=== PATIENT | male | born 2000 | race Caucasian/White ===

== ENCOUNTER 2023-07-08 10:36 | Emergency (ER) | payer OTHER, SELFPAY ==
[2023-07-08] VITALS (11 sets, daily range): BP systolic 124–137; BP diastolic 70–83; PULSE 63–80; RESP 16–18; TEMP 36.6–36.7; O2SAT 96–100; BMI 28.1
--- NOTE | 2023-07-08 10:48 | ED.GENADULT ---
HPI - General Adult General Chief complaint: Urogenital-Male Stated complaint: Rt. Sided Pain, Poss. Kindney Stone Time Seen by Provider: 07/08/23 10:37 Source: patient Mode of arrival: EMS Limitations: no limitations History of Present Illness HPI narrative: Patient is a otherwise healthy 23-year-old male who is brought in by EMS for evaluation of right-sided flank pain. He states that approximately 0800 hours this morning he was sitting in a chair when he had a sudden onset of right-sided flank pain that radiated around to his abdomen. He did receive Toradol prior to arrival. He states that he is now fairly asymptomatic. He had a bowel movement this morning that did not change his pain at all. No fevers. No vomiting. He is never had a kidney stone in the past. No problems urinating. No blood in his urine. Related Data Previous Rx's Medication Instructions Recorded hydrocodone 5 mg-acetaminophen 325 1 tab PO Q4-6H PRN pain #10 tabs 07/08/23 mg tablet ondansetron 4 mg disintegrating 4 mg PO Q6H PRN nausea and 07/08/23 tablet vomiting #14 tabs tamsulosin 0.4 mg capsule (Flomax) 0.4 mg PO DAILY #14 caps 07/08/23 Review of Systems Constitutional Constitutional: Reports system reviewed and no additional complaints, except as documented Respiratory Respiratory: Reports system reviewed and no additional complaints, except as documented Gastrointestinal Gastrointestinal: Reports system reviewed and no additional complaints, except as documented Genitourinary Genitourinary: Reports system reviewed and no additional complaints, except as documented Integumentary/Breasts Skin/Breast: Reports system reviewed and no additional complaints, except as documented Hematologic/Lymphatic On Anticoagulants: No Patient History Social History Smoking Status: Current every day smoker Exam Initial Vital Signs Initial Vital Signs: Vital Signs Pulse Rate 66 07/08/23 10:38 Pulse Oximetry 96 07/08/23 10:38 Const General: cooperative and comfortable HENMT Head: normal to inspection and normocephalic Resp Effort & Inspection: normal respiratory effort Cardio Rate: regular rate GI Inspection: normal to inspection and non-distended Palpation: soft and No tender Skin General: no rashes or lesions noted Neuro General: patient alert, patient awake and moves all extremities Course Orders Ordered: ED Orders 07/08/23 10:42 Ictotest Urine Stat Urine Culture Stat Urine Microscopic Stat 07/08/23 10:47 CT kidney ureter bladder (KUB) Stat 07/08/23 12:08 BMP [Basic Metabolic Panel] Stat Discontinued Medications Hydrocodone Bitart/Acetaminophen (Hydrocodone/Acet 5/325 Tablet) 1 tab PO NOW ONE Stop: 07/08/23 12:21 Last Admin: 07/08/23 12:25 Dose: 1 tab Documented By: BENITO Tamsulosin HCl (Tamsulosin 0.4 Mg Capsule) 0.4 mg PO NOW ONE Stop: 07/08/23 12:21 Last Admin: 07/08/23 12:24 Dose: 0.4 mg Documented By: BENITO Vital Signs Vital signs: Vital Signs - 8 hr 07/08/23 10:38 07/08/23 10:39 07/08/23 10:39 Temperature Pulse Rate 66 67 Respiratory Rate Blood Pressure 132/73 Pulse Oximetry 96 98 Oxygen Delivery Method 07/08/23 10:43 07/08/23 10:54 07/08/23 10:54 Temperature 98.1 F Pulse Rate 67 67 Respiratory Rate 18 Blood Pressure 132/73 129/83 Pulse Oximetry 100 100 Oxygen Delivery Method Room Air 07/08/23 10:55 07/08/23 11:00 07/08/23 11:00 Temperature 97.9 F Pulse Rate 67 67 Respiratory Rate 16 Blood Pressure 129/83 130/79 Pulse Oximetry 99 100 Oxygen Delivery Method Room Air 07/08/23 11:30 07/08/23 11:30 07/08/23 11:44 Temperature Pulse Rate 67 Respiratory Rate Blood Pressure 133/74 124/70 Pulse Oximetry 99 Oxygen Delivery Method 07/08/23 11:44 07/08/23 12:00 07/08/23 12:01 Temperature Pulse Rate 63 70 Respiratory Rate Blood Pressure 131/70 Pulse Oximetry 98 99 Oxygen Delivery Method 07/08/23 12:01 Temperature Pulse Rate 67 Respiratory Rate Blood Pressure Pulse Oximetry 99 Oxygen Delivery Method Medical Decision Making Lab Data Lab results reviewed: Yes I reviewed the patient's lab results. 07/08/23 12:08 Labs: Lab Results 07/08/23 07/08/23 Range/Units 10:42 12:08 Sodium 137 (137-145) mmol/L Potassium 3.8 (3.4-5.1) mmol/L Chloride 99 (98-107) mmol/L Carbon Dioxide 27 (22-32) mmol/L BUN 14 (9-20) mg/dL Creatinine 1.30 H (0.66-1.25) mg/dL Estimated GFR > 60 (>60) mL/min BUN/Creatinine Ratio 10.8 (6-22) Glucose 97 (70-100) mg/dL Calcium 9.5 (8.4-10.2) mg/dL Ur Bilirubin Confirm Negative (Negative) Urine RBC >100/hpf H (0-5/HPF) Urine WBC 5-10/hpf H (0-5/HPF) Ur Squamous Epith Cells 1-5 /hpf (0-5/HPF) Urine Bacteria None seen (None) Ur Culture Indicated? Specimen cultured Urine Dip Bedside Urine Glucose Negative Bedside Urine Bilirubin + 1 Bedside Urine Ketone +/- 5 Urine Specific Bonham 1.030 Bedside Urine Occult Blood +++ Bedside Urine pH 5.5 Bedside Urine Protein ++ 100 Bedside Urine Urobilinogen - Negative Bedside Urine Nitrite - Negative Bedside Urine Leukocytes +/- 15 Esterase Point of care testing: Urine Dip Bedside Urine Glucose Negative Bedside Urine Bilirubin + 1 Bedside Urine Ketone +/- 5 Urine Specific Bonham 1.030 Bedside Urine Occult Blood +++ Bedside Urine pH 5.5 Bedside Urine Protein ++ 100 Bedside Urine Urobilinogen - Negative Bedside Urine Nitrite - Negative Bedside Urine Leukocytes +/- [address] scan - abdomen/pelvis: Radiologist's Impression: PROCEDURE: CT KIDNEY URETER BLADDER (KUB) INDICATIONS: R sided flank pain TECHNIQUE: Axial sections were acquired from the lung bases to the pubic symphysis. Coronal and sagittal reformats were performed. For radiation dose reduction, the following was used: automated exposure control, adjustment of mA and/or kV according to patient size. COMPARISON: None. FINDINGS: Image quality: Excellent. Lung bases: Unremarkable. Heart: No significant findings. URINARY: Right Kidney: Mild hydronephrosis and mild perinephric stranding. Right Ureter: Obstructing stone within the proximal right ureter measuring 5 mm (Hounsfield units 787). There is mild upstream hydroureteronephrosis. Left Kidney: No stones or hydronephrosis. Left Ureter: No hydroureter. Bladder: Decompressed, limiting evaluation. No stones. ABDOMEN: Liver: Unremarkable. Gallbladder: Unremarkable. Biliary ducts: Unremarkable. Pancreas: Unremarkable. Spleen: Unremarkable. Adrenal Glands: Unremarkable. Stomach and Bowel: Stomach, small bowel loops, and colon are unremarkable. Peritoneum: No abnormal intraperitoneal fluid. No free air. Ventral Wall: No hernia. Abdominal Nodes: No enlarged retroperitoneal or mesenteric lymph nodes. Vessels: Aorta and inferior vena cava are normal in size. PELVIS: Pelvic Organs: Unremarkable. Pelvic Nodes: Unremarkable. Miscellaneous: No inguinal hernias are seen. Bones: Unremarkable. IMPRESSION: There is a 5 mm obstructing stone within the proximal right ureter resulting in mild upstream hydroureteronephrosis. MDM Narrative Medical decision making narrative: Patient does have a 5 mm right-sided ureteral stone which very much explains his presenting symptoms today. Has a creatinine of 1.3 however do not have a baseline for him. His pain is relatively controlled. Given the size of the stone will also start him on Flomax. No signs of urinary tract infection. Tolerating oral intake. 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 He was given return precautions. He expressed understanding and agreement. Discharge Plan Departure Patient Disposition: Home Clinical Impression: Right ureteral stone Instructions: DI for Kidney Stones Activity Restrictions/Additional Instructions: I do recommend that you increase your fluid intake. Take the nausea medication and pain medication as needed. You do need to be cleared by your medical department before you return to work. Return to the emergency department for pain or nausea that is not controlled and or fevers. Prescriptions: New tamsulosin [Flomax] 0.4 mg capsule 0.4 mg PO DAILY Qty: 14 0RF ondansetron 4 mg tablet,disintegrating 4 mg PO Q6H PRN (Reason: nausea and vomiting) Qty: 14 0RF hydrocodone-acetaminophen 5-325 mg tablet 1 tab PO Q4-6H PRN (Reason: pain) Qty: 10 0RF Stand Alone Forms: Patient Portal/API
[2023-07-08 10:56] LABS: Ictotest Urine Negative (Negative)
[2023-07-08 11:00] LABS: RBC Urine >100/HPF (0-5/HPF)
[2023-07-08 11:01] LABS: WBC Urine 5-10/HPF (0-5/HPF)
[2023-07-08 11:02] LABS: Bacteria Urine None Seen; Culture Indicated Urine Specimen Cultured; Squamous Epithelial Cell Urine 1-5 /HPF (0-5/HPF)
[2023-07-08] MEDS: TAMSULOSIN 0.4 MG CAPSULE PO (12:24)
[2023-07-08] MEDS: HYDROCODONE/ACET 5/325 TABLET 1 TAB PO (12:25)
[2023-07-08 12:27] LABS: BUN Creatinine Ratio 10.8 (6-22); Blood Urea Nitrogen 14 mg/dL (9-20); Calcium 9.5 mg/dL (8.4-10.2); Carbon Dioxide 27 mmol/L (22-32); Chloride 99 mmol/L (98-107); Estimated Glomerular Filt Rate > 60 mL/min (>60); Glucose 97 mg/dL (70-100); HEMOLYSIS < 15 (0-50); Potassium 3.8 mmol/L (3.4-5.1); Sodium 137 mmol/L (137-145)
--- NOTE | 2023-08-03 14:45 | PC.NURSE ---
records sent to [facility] for continuity of care.
== END 2023-07-08 12:39 | disposition home or self-care (01) ==
PROVIDERS: Emergency Provider Emergency Medicine
DX: N20.1 Calculus of ureter (principal)
CPT/HCPCS: 36415; 74176; 80048; 81003; 81015; 87086; 99283; 99284